=== PATIENT | female | born 1950 | race Caucasian/White ===

== ENCOUNTER 2020-08-27 10:46 | Emergency (ER) | payer MEDICARE, OTHER ==
[~2020-08-27] VITALS: Ht 165.1 cm; Wt 86.2 kg
--- NOTE | 2020-08-27 10:48 | NUR ---
BIB SELF C/O SOB STARTED SATURDAY AND LOW O2 SAT 90%. AOX4, ABLE TO MAKE NEEDS KNOWN, PT PLACE ON S7DEFDS 2LPM VIA NC SATURATING @96%. WILL CONTINUE TO MONITOR
--- NOTE | 2020-08-27 11:00 | NUR ---
IV INSERTED IN LAC G#20.
[2020-08-27] MEDS ORDERED: IPRATROPIUM NEB FS 0.5 MG/2.5 ML AMPUL.NEB NEB ONE (11:30)
[2020-08-27] MEDS ORDERED: methylPREDNISolone SOD SUCC 125 MG/2ML VIAL IV ONE (11:30)
[2020-08-27] MEDS ORDERED: ALBUTEROL FS 2.5 MG/3 ML VIAL.NEB NEB ONE (11:30)
[2020-08-27 11:41] LABS: BASOPHILS % (AUTO) 0.5 % (0.0-2.0); EOSINOPHILS % (AUTO) 1.1 % (0.0-6.0); HEMATOCRIT 43 % (33-45); LYMPHOCYTES # (AUTO) 0.7 /CMM (0.8-4.8); LYMPHOCYTES % (AUTO) 9.8 % (20.0-44.0); MEAN CORPUSCULAR HGB CONC 32 g/dl (31.0-36.0); MEAN CORPUSCULAR VOLUME 91 fL (82-100); MONOCYTES # (AUTO) 0.6 /CMM (0.1-1.30); MONOCYTES % (AUTO) 7.9 % (2.0-12.0); NEUTROPHILS # (AUTO) 5.9 /CMM (1.8-8.9); NEUTROPHILS % (AUTO) 80.7 % (43.0-81.0); PLATELET COUNT (AUTO) 231 /CMM (150-450); RED BLOOD CELL COUNT(AUTO) 4.75 MIL/uL (4.0-5.2); WHITE BLOOD COUNT (AUTO) 7.3 K/uL (4.3-11.0)
[2020-08-27] MEDS ORDERED: methylPREDNISolone SOD SUCC 125 MG/2ML VIAL ONE (11:41)
[2020-08-27 11:47] LABS: CALCIUM, SERUM 8.2 mg/dL (8.5-10.1); CARBON DIOXIDE 31 mmol/L (21-32); CHLORIDE 103 mmol/L (98-107); CREATININE 1.2 mg/dL (0.6-1.3); GLUCOSE 103 mg/dL (74-106); POTASSIUM 4.2 mmol/L (3.5-5.1); SODIUM SERUM 142 mmol/L (136-145); UREA NITROGEN, BLOOD 12 mg/dL (7-18)
[2020-08-27 11:59] LABS: NT-PRO BNP 216 pg/mL (0-125)
[2020-08-27] MEDS ORDERED: ALBUTEROL FS 2.5 MG/3 ML VIAL.NEB ONE (12:26)
[2020-08-27] MEDS ORDERED: IPRATROPIUM NEB FS 0.5 MG/2.5 ML AMPUL.NEB ONE (12:26)
[2020-08-27] MEDS ORDERED: ALBU18HF2 INH (13:38)
[2020-08-27] MEDS ORDERED: PRED20TA PO (13:38)
[2020-08-27] MEDS ORDERED: AZIT1PAC9 PO (13:51)
--- NOTE | 2020-08-27 14:09 | NUR ---
Patient discharged to home in stable condition. Written and verbal after care instructions given. Patient verbalizes understanding of instruction.IV removed. Catheter intact and site benign. Pressure and 4x4 applied to site. No bleeding noted.
[2020-08-27 14:11] VITALS: BP 134/66
== END 2020-08-27 14:11 | disposition home or self-care (01) ==
LOC: ER 10:50
DX: J44.1 Chronic obstructive pulmonary disease with (acute) exacerbation (principal); J20.9 Acute bronchitis, unspecified; Z88.8 Allergy status to other drugs, medicaments and biological substances
CPT/HCPCS: 36415; 71045; 80048; 83880; 84484; 85025; 93005; 94644; 96374; 99285; J2930

== ENCOUNTER 2020-10-15 10:00 | Emergency (ER) | payer MEDICARE, OTHER ==
[~2020-10-15] VITALS: Ht 165.1 cm; Wt 77.1 kg
[~2020-10-15 10:00] MED LIST: ALBU18HF2 INH; AZIT1PAC9 PO; PRED20TA PO
[2020-10-15 10:06] VITALS: BP 138/44
--- NOTE | 2020-10-15 10:35 | NUR ---
STRATEGIC PROCUREMENT MANAGER AT BEDSIDE FOR XRAY.
[2020-10-15] MEDS ORDERED: IBUP-1957 PO (11:40)
--- NOTE | 2020-10-15 11:43 | NUR ---
Left Premade james splint applied by EMT Patient discharged to home in stable condition. Written and verbal after care instructions given. Patient verbalizes understanding of instruction.
== END 2020-10-15 11:44 | disposition home or self-care (01) ==
LOC: ER 10:04
DX: S60.222A Contusion of left hand, initial encounter (principal); Z91.048 Other nonmedicinal substance allergy status; Z79.899 Other long term (current) drug therapy; Z86.73 Personal history of transient ischemic attack (TIA), and cerebral infarction without residual deficits; W23.0XXA Caught, crushed, jammed, or pinched between moving objects, initial encounter; Y93.89 Activity, other specified; Y92.89 Other specified places as the place of occurrence of the external cause; Y99.8 Other external cause status
CPT/HCPCS: 29125; 73130; 99283; L3763